=== PATIENT | male | born 1950 | race African-American/Black ===

== ENCOUNTER 2016-04-26 12:59 | Emergency (ER) ==
[2016-04-26 13:14] VITALS: BP 158/92
--- NOTE | 2016-04-26 13:27 | PROVIDER DOCUMENTATION ---
HPI-General Adult - General Source: patient - History of Present Illness -Gen Adult Nature of Presenting Problems: PT IS A 66 YOM WITH A CC OF TOOTHACHE X 2 WEEKS REPORTS FEELS LIKE HAVING PALPITATIONS TODAY. PT HAS HX OF AFIB. DENIES SOB,CP,N,V,FEVER. PT REPORTS HIS PARTIAL ON LEFT UPPER IS STUCK IN LEFT GUM CAUSING TOOTHACHE. Location of Pain/Injury: reports: mouth Quality of Pain: reports: aching Severity: reports: moderate Onset/Duration: reports: other (2WEEKS) Timing: reports: still present Similar Symptoms Previously?: No Recently seen or treated by another doctor?: No <Abhijit Yu - Last Filed: 04/26/16 13:27> <Salo Johnson - Last Filed: 04/26/16 13:30> - General Chief Complaint: Toothache Stated Complaint: TOOTHACHE/PALPITATIONS Time Seen by Provider: 04/26/16 13:19 Allergies/Adverse Reactions: Patient Allergies Allergy/AdvReac Type Severity Reaction Status Date / Time lisinopril AdvReac Unknown Verified 04/03/15 23:15 Home Medications: Home Medication List Medication Instructions Recorded Confirmed Last Taken Type Atenolol/Chlorthalidone 1 tab PO DAILY 04/03/15 04/30/15 04/30/15 History [Atenolol-Chlorthal 50-25 Tb] Review of Systems - Adult - REVIEW OF SYSTEMS - ADULT Constitutional: denies: chills, fever, fatique Eyes: reports: no symptoms reported Ears, Nose, Mouth & Throat: reports: mouth/dental pain. denies: ear pain, sinus problem, throat pain Cardiovascular: reports: palpitations. denies: chest pain, irregular heart rate , orthopnea Respiratory: reports: no symptoms reported Gastrointestinal: reports: no symptoms reported Genitourinary: reports: no symptoms reported Musculoskeletal: reports: no symptoms reported Integumentary: reports: no symptoms reported Neurological: reports: no symptoms reported Psychiatric: reports: no symptoms reported Endocrine: reports: no symptoms reported Hematologic/Lymphatic: reports: no symptoms reported Allergic/Immunologic: reports: no symptoms reported All Other Systems: Reviewed and Negative <Abhijit Yu - Last Filed: 04/26/16 13:27> Past History - Adult - PAST MEDICAL HISTORY-ADULT Review of Records: reports: Nursing Assessment Review Major Childhood Illnesses: reports: denies history Cardiovascular: reports: A-Fib, HTN, hyperlipidemia Other Conditions: reports: denies history - PRIOR SURGERIES/PROCEDURES Surgical/Procedure History: reports: reviewed, not pertinent - PRIOR HOSPITALIZATIONS Prior Hospitalizations: reports: none - IMMUNIZATION STATUS Childhood Immunizations: See Nurse Assessment Flu Vaccine: See Nurse Assessment - FAMILY HISTORY Family History: reviewed, not pertinent - SOCIAL HISTORY Smoking: denies Substance Use: none/never <Abhijit Yu - Last Filed: 04/26/16 13:27> Physical Exam-General - PHYSICAL EXAM-ADULT Initial Vital Signs Reviewed: Yes - CONSTITUTIONAL General Appearance: appears well, alert, no apparent distress - EYES Eyes: PERRL/EOMI - HEAD, EARS, NOSE, MOUTH & THROAT HENMT: moist mucous membranes, TMs normal, pharynx normal, other (TTP LEFT UPPER TOOTH 1ST MOLAR NO DECAY NOTED PARTIAL IS PRESENT BUT NOT STUCK IN GUM.) - NECK Neck: non-tender, full range of motion, supple, normal inspection - RESPIRATORY Respiratory: chest non-tender, lungs clear, normal breath sounds, no pleuratic chest pain, no respiratory distress, no accessory muscle use - CARDIOVASCULAR Cardiovascular: regular rate, rhythm - GASTROINTESTINAL (ABDOMEN) Abdominal Exam: non tender, soft, no organomegaly, no pulsatile mass - MUSCULOSKELETAL Extremity: normal range of motion, non-tender, normal gait - SKIN Integumentary: normal color, normal turgor, warm/dry - PSYCHIATRIC Psych/Mental Status: normal mood/affect, normal thought content, normal thought process, oriented x 3 <Abhijit Yu - Last Filed: 04/26/16 13:27> Progress - PLAN OF CARE/RESULTS Progress/Plan/Lab Results: Orders Category Date Time Status EKG [EKG] Stat Ther 04/26/16 13:15 Ordered Vital Signs - 24 hr 04/26/16 13:11 Temperature 98 F Pulse Rate 62 Respiratory 18 Rate Blood Pressure 158/92 O2 Sat by Pulse 100 Oximetry - EKG 1 Time of EKG reading by physician:: 13:14 EKG Read and Signed by:: Salo Johnson EKG Interpretation (*Must complete 3 of following elements*): Abnormal Rate: 65 Rhythm: SINUS WITH PAC [place]: normal QRS: LVH (MINIMAL VOLTAGE FOR CRITERIA FOR LVH MAY BE NORMAL VARIANT) MA Interval: normal ST Wave: normal <Abhijit Yu - Last Filed: 04/26/16 13:27> Departure - Departure Time of Disposition Order: 13:28 Certified Medical Emergency: Emergent <Abhijit Yu - Last Filed: 04/26/16 13:27> - Departure Time of Disposition Order: 13:29 Certified Medical Emergency: Emergent <Salo Johnson - Last Filed: 04/26/16 13:30> - Departure DIAGNOSIS: Pain, dental Disposition: HOME 01 Condition: Stable Additional Instructions: FOLLOW UP WITH THE DENTAL CLINIC IN [facility] Follow Up Instructions: You have been treated by a care provider in the Emergency Department. These instructions are being provided to you so you can have an understanding of how to care for yourself upon discharge. Upon discharge from the Emergency Department, you are responsible for making arrangements for follow-up care by a physician of your choice. Take all prescribed medications as directed. Return to the Emergency Department immediately for any new or worsening symptoms. You may call the Physician Referral phone number at [phone] to obtain a list of Physicians who are taking new patients. Referrals: None,PCP [Primary Care Provider] - Attestation - Scribe Verification/Attestation Scribe:: Abhijit Yu Acting as Scribe for:: Salo Johnson Scribe documention review:: This chart was documented by a scribe and accurately reflects the service the provider performed and the decisions made by the provider. <Abhijit Yu - Last Filed: 04/26/16 13:27> Physician Attestation - Physician Attestation I, the provider, attest to the following statement:: Salo Johnson Physician documentation Attestation:: This documentation recorded by the scribe accurately reflects the service I personally performed and the decisions made by me. <Abhijit Yu - Last Filed: 04/26/16 13:27>
--- NOTE | 2016-04-26 16:14 | EKG Report ---
Test Performed on : 04/26/2016 1:14:30 PM Test Reason : palpitations hx a fib Blood Pressure : / mmHG Vent. Rate : 065 BPM Atrial Rate : 066 BPM P-R Int : 152 ms QRS Dur : 084 ms QT Int : 438 ms P-R-T Axes : -03 048 036 degrees QTc Int : 455 ms Sinus rhythm. with premature atrial complexes. Minimal voltage criteria for LVH, may be normal variant Borderline ECG When compared with ECG of 30-APR-2015 22:48, No significant change was found Unconfirmed Result
== END 2016-04-26 13:41 | disposition home or self-care (01) ==
LOC: P.ED 12:59
DX: K08.89 Other specified disorders of teeth and supporting structures (principal); R00.2 Palpitations; R94.31 Abnormal electrocardiogram [ECG] [EKG]; I48.91 Unspecified atrial fibrillation; I10 Essential (primary) hypertension; E78.5 Hyperlipidemia, unspecified; Z79.899 Other long term (current) drug therapy
CPT/HCPCS: 93005; 99282

== ENCOUNTER 2016-10-29 21:37 | Inpatient (IN) ==
[2016-10-29] MEDS ORDERED: CARDIZEM 100 MG/NS 100 MG/100 ML IVPB ONE (22:34)
[2016-10-29] MEDS ORDERED: CARDIZEM ONE (22:34)
[2016-10-29] MEDS ORDERED: NS 1,000 ML IV ONE (22:39)
[2016-10-29] MEDS ORDERED: NS 1,000 ML ONE (22:39)
[2016-10-29] MEDS ORDERED: CARDIZEM IV ONE (22:39)
[2016-10-29] MEDS ORDERED: ASPIRIN PO STA (22:40)
[2016-10-29] MEDS ORDERED: ADENOCARD ONE (22:43)
[2016-10-29] MEDS: CARDIZEM 100 MG/NS 100 MG/100 ML IVPB IV SCH ×3 (22:45→23:52)
[2016-10-29 22:48] LABS: MANUAL DIFF NEEDED? NO
[2016-10-29 22:51] LABS: BASO% 0.1 % (0.0-0.8); EOS# 0.06 X1000 (0.0-0.7); EOS% 0.5 % (0.0-10.0); HEMATOCRIT 43.2 % (42.0-52.0); HEMOGLOBIN 14.9 g/dL (14.0-18.0); IMM GRAN# 0.02 X1000 (0.0-0.04); IMM GRAN% 0.2 % (0.0-0.5); LYMPH# 3.21 X1000 (1.2-3.4); LYMPH% 27.2 % (20.5-51.1); MCH 30.3 PG (27-31); MCHC 34.5 g/dL (33-37); MCV 87.8 FL (81-99); MONO# 1.15 X1000 (0.11-0.59); MONO% 9.7 % (1.7-9.3); MPV 10.7 FL (7.4-10.4); NEUT% 62.3 % (42.2-75.2); PLT 205 X1000 (130-400); RBC 4.92 XMIL (4.7-6.1)
[2016-10-29 23:00] LABS: INR 1.02; PROTIME 10.7 Seconds (9.2-11.7); PTT 26.7 Seconds (22.0-36.0)
[2016-10-29] MEDS ORDERED: ADENOCARD IV ONE ×2 (23:06)
[2016-10-29 23:13] LABS: AGAP 17; ALBUMIN 4.6 g/dL (3.5-5.0); ALKALINE PHOSPHATASE 86 U/L (32-122); BUN 14 mg/dL (8-22); CALCIUM 9.2 mg/dL (8.8-10.2); CHLORIDE 95 mmol/L (98-107); CK PROFILE 103 U/L (24-204); COSMO 278; GOT 18 U/L (10-34); GPT 15 U/L (10-44); MAGNESIUM 1.6 mg/dL (1.5-2.7); POTASSIUM 3.1 mmol/L (3.5-5.1); SODIUM 138 mmol/L (136-145); TCO2 26 mmol/L (25-35); TOTAL BILIRUBIN 0.39 mg/dL (0.20-1.00); TOTAL PROTEIN 8.3 g/dL (6.3-8.3)
[2016-10-29] MEDS ORDERED: KLOR-CON PO ONE (23:17)
[2016-10-29] MEDS ORDERED: ZOFRAN IV ONE (23:19)
[2016-10-29] MEDS ORDERED: VERSED IV ONE ×4 (23:28→23:45)
[2016-10-29] MEDS ORDERED: MORPHINE IV ONE (23:29)
[2016-10-29] MEDS ORDERED: LANOXIN ONE (23:54)
[2016-10-30] MEDS ORDERED: NS 1,000 ML IV ONE (00:01)
[2016-10-30] MEDS ORDERED: LANOXIN IV ONE (00:01)
[2016-10-30] MEDS ORDERED: CORDARONE 150 MG/D5W 150 MG/100 ML IV.SOLN IV ONE ×2 (00:07→00:28)
[2016-10-30] MEDS ORDERED: CORDARONE 540 MG in D5W 289.2 ML IV ONE ×2 (00:07→06:30)
[2016-10-30] MEDS: POTASSIUM CHLORIDE 10 MEQ/SWI 10 MEQ/100 ML IVPB IV ONE ×2 (00:15→01:00)
[2016-10-30] MEDS ORDERED: CORDARONE 360 MG/D5W 360 MG/200 ML IV.SOLN IV ONE (00:28)
[2016-10-30] MEDS ORDERED: KLOR-CON PO ONE (01:02)
[2016-10-30] MEDS ORDERED: NS 1,000 ML IV SCH (04:04)
[2016-10-30] MEDS ORDERED: MAGNESIUM SULFATE 2 GM/S.W.I. 2 GM/50 ML IVPB IV ONE (04:04)
[2016-10-30] MEDS ORDERED: ZOFRAN IV PRN (04:04)
[2016-10-30] MEDS: CARDIZEM 100 MG/NS 100 MG/100 ML IVPB IV SCH (04:36)
[2016-10-30] MEDS ORDERED: LOVENOX SUBQ SCH (06:00)
--- NOTE | 2016-10-30 06:36 | HISTORY AND PHYSICAL ---
PRIMARY CARE PROVIDER: JACKI Posey. CHIEF COMPLAINT: Dizziness, palpitations, and nausea. HISTORY OF PRESENT ILLNESS: Briefly, this is a 66-year-old male with a history of atrial fibrillation, hypertension, hyperlipidemia, and anxiety. He stated that sometime in the last week, he hurt his back unloading some heavy equipment. He went to a physician in [place] for treatment for his back pain. During that visit, she stopped his atenolol, which he took for a combination of atrial fibrillation and hypertension. She placed him on a thiazide diuretic and Norvasc 5 mg. Since that time, he stated that he had felt palpitations, culminating in tonight he felt as if his heart was racing. He was dizzy. He denied overt chest pain, shortness of breath. He did have nausea, no vomiting. No additional bowel or bladder complaint. The patient decided to come in to the emergency room. On arrival, laboratory data and an EKG was obtained, that showed him to be in atrial fibrillation, with a rapid ventricular rate. He at some point, converted into SVT while in the emergency room. He was given adenosine, which did slow the rate enough to show underlying atrial fibrillation, but the patient would return back into SVT in the 160s and 170s. He received 2 doses of adenosine, and remained in SVT. He was then given a Cardizem bolus and started on a Cardizem drip, again staying in SVT. The ER provider at that point attempted cardioversion after giving him Versed, and the patient stayed in SVT in the 170s, 180s. I arrived at that point during the patient's care treatment. The patient was very groggy from having received Versed. We gave digoxin 0.25 mg, maxed out the Cardizem drip at 20 mg/hour. The patient would have times where he would attempt to convert. His heart rate would slow to around 100, and he would have reentry SVT. We ultimately ended up loading the patient with amiodarone 150 mg. As that was infusing, he returned to sinus rhythm, rate in the 90s. We will continue the Cardizem, place him in ICU inpatient for further evaluation and treatment. PAST MEDICAL HISTORY: 1. Atrial fibrillation. 2. Hypertension. 3. Hyperlipidemia. 4. Anxiety. PAST SURGICAL HISTORY: Aspiration of knee joint. ALLERGIES: Benadryl, causing palpitations. Lisinopril, causing an unknown reaction. SOCIAL HISTORY: He lives with a friend. Denies alcohol, tobacco, or illicit drug use or abuse. FAMILY HISTORY: Mother had hypertension. Denied any other chronic health issues in first-degree relatives. HOME MEDICATIONS: Chlorthalidone 50 mg p.o. daily, amlodipine 5 mg p.o. daily. REVIEW OF SYSTEMS: Fourteen-point review of systems conducted with the patient. Pertinent positives listed above in the HPI. All other systems were reviewed and found to be negative. PHYSICAL EXAMINATION: VITAL SIGNS: Temperature 98.7 degrees, pulse between 150 and 170. SVT on monitor. Respirations 18. Blood pressure 97/87 to 125/85. Oxygen saturation 98% on 2 L nasal cannula. GENERAL: Well-developed, well-nourished 66-year-old male, lying in the ER stretcher, mildly groggy from receiving Versed. Does answer all questions appropriately. Alert and oriented x3. HEENT: Head is atraumatic, normocephalic. Pupils equal, round, reactive to light. Extraocular eye movement intact. Sclerae is anicteric. Conjunctivae is pink. Oral mucosa was moist. NECK: Supple. No JVD. No thyromegaly. Trachea is midline. No cervical lymphadenopathy. CARDIAC: S1-S2 appreciated. Very rapid rate. SVT on monitor. No murmurs, gallops, or rubs could be appreciated. LUNGS: Clear to auscultation bilaterally. No rhonchi, wheezes, or rales. Symmetrical rise and fall with respirations. ABDOMEN: Protuberant, soft, nondistended, nontender. Bowel sounds present in all 4 quadrants. Normoactive. No pulsatile mass. No organomegaly. EXTREMITIES: No clubbing, cyanosis, or edema. 1+ pedal pulses bilaterally. GENITOURINARY: The patient voids. No bladder distention. Otherwise, deferred. SKIN: Appropriate for race. Warm, dry, and intact. No acute lesions or rash. NEUROLOGICAL: Somewhat lethargic, having received Versed. Alert and oriented x3. Cranial nerves 2-12 appear to be grossly intact. DIAGNOSTIC DATA: Chest x-ray: NAD. LABORATORY DATA: WBC 11.82, hemoglobin 14.9, hematocrit 43.2, platelet count 205,000. Sodium 138, potassium 3.1, chloride 95, carbon dioxide 26, BUN 14, creatinine 1.3. GFR greater than 60. Glucose 124. CK 103. Troponin less than 0.010. ASSESSMENT AND PLAN: 1. Paroxysmal atrial fibrillation, with a rapid ventricular rate, that then converted to supraventricular tachycardia after receiving multiple medications in the emergency room, and a failed attempt at chemical and electrical cardioversion. The patient finally converted to sinus rhythm. He will remain on Cardizem, to be titrated. We will consult Dr. Jose Robles for evaluation in a.m. Echocardiogram has been ordered. It is possible that the patient will need chronic anticoagulation secondary to his atrial fibrillation. At this time, we will just give 40 mg of Lovenox for ventricular tachycardia prophylaxis. 2. Hypertension. Patient has remained normotensive or hypotensive. Cardizem will be continued. Will re-evaluate and restart medications when appropriate. 3. Hypokalemia. Patient was treated with a total of 50 mEq of potassium chloride in the emergency room. 4. Hyperlipidemia. We will order a lipid profile. The patient does not take a statin. 5. Anxiety. The patient was unable to tell us which antianxiety medication he takes. He has received several doses of Versed tonight. While it does have a relatively short half-life, the patient states that he feels fine. Will hold off on anxiety medication at this time and address at a later date if necessary. Further recommendations per patient's clinical course. I personally evaluated and did physicial exam on the patient. I agree with above assessment and plan Dr. Monroe Dictated by JACKI Leigh for Dimitry Monroe MD cc: JACKI Leigh MD Johnna Langford, CRNP MTDD
--- NOTE | 2016-10-30 07:35 | Diag Imaging Result Doc PS360 ---
EXAM: CHEST-PORTABLE HISTORY: CP TECHNIQUE: AP portable upright at 2312 COMMENT: The lungs are clear and the heart and primary vascularity are within normal limits. Compared to 04/30/2015 there has been no significant change. IMPRESSION: No acute disease. Electronically signed by Tyler Diaz 10/30/2016 7:33 AM
[2016-10-30 08:07] VITALS: BP 134/77
[2016-10-30 08:58] LABS: MANUAL DIFF NEEDED? NO
[2016-10-30] MEDS ORDERED: LANOXIN IV SCH (09:00)
[2016-10-30 09:01] LABS: BASO% 0.1 % (0.0-0.8); EOS# 0.03 X1000 (0.0-0.7); EOS% 0.4 % (0.0-10.0); HEMATOCRIT 42.9 % (42.0-52.0); HEMOGLOBIN 14.9 g/dL (14.0-18.0); LYMPH# 1.74 X1000 (1.2-3.4); LYMPH% 24.4 % (20.5-51.1); MCH 30.7 PG (27-31); MCHC 34.7 g/dL (33-37); MCV 88.5 FL (81-99); MONO% 9.8 % (1.7-9.3); MPV 10.1 FL (7.4-10.4); NEUT% 65.3 % (42.2-75.2); PLT 178 X1000 (130-400); RBC 4.85 XMIL (4.7-6.1)
[2016-10-30 09:12] LABS: HEMOGLOBIN A1C 5.6 % (4.8-6.0)
[2016-10-30 09:38] LABS: AGAP 14; BUN 9 mg/dL (8-22); CHLORIDE 98 mmol/L (98-107); COSMO 269; MAGNESIUM 2.3 mg/dL (1.5-2.7); POTASSIUM 3.6 mmol/L (3.5-5.1); SODIUM 135 mmol/L (136-145); TCO2 23 mmol/L (25-35)
[2016-10-30 09:54] LABS: HDL 38 mg/dL (35-55); LDL 195 mg/dL; TRIGLYCERIDES 123 mg/dL (39-160); VLDL 25 mg/dL
--- NOTE | 2016-10-30 18:23 | DISCHARGE SUMMARY ---
ADMISSION DATE: 10/30/2016 DISCHARGE DATE: 10/30/2016 DISCHARGE DIAGNOSES: 1. Paroxysmal atrial fibrillation now in sinus rhythm. 2. Hypertension, under control. 3. Hypokalemia. 4. Hyperlipidemia. 5. Anxiety. PROCEDURE: Chest x-ray done in the ER showed no acute disease. HOSPITAL COURSE: This is a 66-year-old male with past medical history of atrial fibrillation, hypertension, hyperlipidemia, anxiety that presented to the emergency department because he was feeling dizzy and he was having palpitations and finally because he felt that his heart was racing, he came to the ER. He was on found initially in atrial fibrillation with rapid ventricular response. Then after some minutes, that converted to supraventricular tachycardia. He was given adenosine apparently 16 g IV and that has lowered heart rate. He received actually 2 doses of adenosine and remained in SVT. He was started on Cardizem drip and again in SVT, so ER attempted to do cardioversion and after the patient was given Versed and they did that procedure, the heart rate was still in 170s. He was also given digoxin 0.25 mg IV and Cardizem was being given 20 mg/hour and also received 1 dose of amiodarone 150 mg. The patient has converted to sinus rhythm and actually the heart rate is 60. Patient is not complaining of any chest pain or palpitations. I want to see this patient in the morning. The nurse also at bedside. I explained in depth to him that considering that he had atrial fibrillation and then he developed an SVT that was extremely difficult to treat because he received adenosine, digoxin, amiodarone and then Cardizem, he needs to be seen by Cardiology to see if he may need to have more cardiac workup. The patient reports that he is feeling completely fine. He reports that if something wrong happened to him, he is going to feel it. The patient was explained again that the patient cannot feel the heart rhythm and that can have just an episode of syncope from a normal heart rhythm, but he insists to leave. I informed him that my recommendation is to stay in the hospital and have a Cardiology evaluation, but he insists to leave and he is going to sign forms for leaving the hospital AMA. Patient recommended to come to the hospital in case he notices any chest pain, shortness of breath or sensation of palpitations. The patient refused to be examined by me this morning. As we mentioned before, patient is leaving the hospital against medical advice. The patient was explained that if some of thing happens to him , it will be his responsibility. He acknowledged understanding. cc: Mookie Mcpherson MD MTDD
--- NOTE | 2016-10-31 05:50 | EKG Report ---
Test Performed on : 10/30/2016 05:45:15 AM Test Reason : ROUTINE Blood Pressure : / mmHG Vent. Rate : 069 BPM Atrial Rate : 069 BPM P-R Int : 152 ms QRS Dur : 082 ms QT Int : 438 ms P-R-T Axes : 038 020 050 degrees QTc Int : 469 ms Sinus rhythm. with premature atrial complexes. Nonspecific T wave abnormality Prolonged QT Abnormal ECG When compared with ECG of 30-OCT-2016 00:26, (Unconfirmed) premature atrial complexes. are now present Confirmed by Lul Vasquez MD ([id number]) on 11/02/2016 6:00:16 PM
--- NOTE | 2016-10-31 06:05 | EKG Report ---
Test Performed on : 10/29/2016 9:42:32 PM Test Reason : SOB Blood Pressure : / mmHG Vent. Rate : 128 BPM Atrial Rate : 174 BPM P-R Int : 000 ms QRS Dur : 092 ms QT Int : 332 ms P-R-T Axes : 000 030 221 degrees QTc Int : 484 ms Atrial fibrillation. with rapid ventricular response. with premature ventricular or aberrantly condu cted complexes. Nonspecific ST and T wave abnormality Abnormal ECG When compared with ECG of 26-APR-2016 13:14, Atrial fibrillation. has replaced Sinus rhythm. Vent. rate has increased BY [address] now depressed in Lateral leads Nonspecific T wave abnormality, worse in Inferior leads Unconfirmed Result
--- NOTE | 2016-10-31 06:10 | EKG Report ---
Test Performed on : 10/29/2016 10:39:33 PM Test Reason : No Order in [employer] Blood Pressure : / mmHG Vent. Rate : 181 BPM Atrial Rate : 220 BPM P-R Int : 000 ms QRS Dur : 086 ms QT Int : 270 ms P-R-T Axes : 000 031 -76 degrees QTc Int : [address] \T\ T wave abnormality, consider inferior ischemia Abnormal ECG When compared with ECG of 29-OCT-2016 22:38, (Unconfirmed) Sinus rhythm. has replaced Atrial fibrillation. Unconfirmed Result
--- NOTE | 2016-10-31 06:10 | EKG Report ---
Test Performed on : 10/30/2016 00:26:57 AM Test Reason : No Order in [employer] Blood Pressure : / mmHG Vent. Rate : 087 BPM Atrial Rate : 087 BPM P-R Int : 148 ms QRS Dur : 078 ms QT Int : 386 ms P-R-T Axes : 042 026 055 degrees QTc Int : 464 ms Normal sinus rhythm. Normal ECG When compared with ECG of 29-OCT-2016 22:39, (Unconfirmed) Vent. rate has decreased BY 94 BPM Non-specific change in ST segment in Inferior leads ST no longer depressed in Anterolateral leads T wave inversion no longer evident in Inferior leads T wave amplitude has decreased in Anterior leads Unconfirmed Result
--- NOTE | 2016-11-15 02:45 | PROVIDER DOCUMENTATION ---
This chart was entered by Mary Cobian Scribe, acting as scribe for George Knott MD. HPI-Cardiac General - General Chief Complaint: Palpitations Stated Complaint: SOB, DIZZYNESS Time Seen by Provider: 10/29/16 22:50 Source: patient Allergies/Adverse Reactions: Patient Allergies Allergy/AdvReac Type Severity Reaction Status Date / Time lisinopril AdvReac Unknown Verified 10/29/16 23:13 Home Medications: Home Medication List Medication Instructions Recorded Confirmed Last Taken Type Amlodipine Besylate 5 mg PO DAILY 10/29/16 10/29/16 10/29/16 History Chlorthalidone 50 mg PO DAILY 10/29/16 10/29/16 10/29/16 History - History of Present Illness-Cardiac Nature of Presenting Problem: Patient is a 66 year old male who presents in the ED with complaints of palpitations/arrhythmia. Patient states he began feeling his heart race, chest pain/pressure, and short of breath last night, and states he has had symptoms intermittent since onset. He also states he has a history of afib, hypertension , and hyperlipidemia, and states he takes Chlorthalidone and Amlodipine but was taken off of Atenolol a few days ago after going to the ER for groin pain. He denies any other symptoms. Location: reports: substernal Quality of Pain: reports: pressure Severity in ED: mild, moderate Onset/Duration: abrupt, 24 hours ago, last night Timing: still present Context/Activities at Onset: reports: none Modifying Factors: improves with: nothing Palpitation Quality: irregular History of arrythmia: reports: A-Fib Recent use of:: reports: no stimulants Aspirin Treatment Today: reports: no aspirin today Prior Chest Pain/Cardiac Workup: reports: other (hx afib) Associated Symptoms: reports: shortness of breath Similar Symptoms Previously?: Yes Recently Seen Here or By Another Healthcare Provider: No Review of Systems - Adult - REVIEW OF SYSTEMS - ADULT Constitutional: reports: no symptoms reported Eyes: reports: no symptoms reported Ears, Nose, Mouth & Throat: reports: no symptoms reported Cardiovascular: reports: see HPI, chest pain, irregular heart rate, palpitations Respiratory: reports: see HPI, shortness of breath Gastrointestinal: reports: no symptoms reported Genitourinary: reports: no symptoms reported Musculoskeletal: reports: no symptoms reported Integumentary: reports: no symptoms reported Neurological: reports: no symptoms reported Psychiatric: reports: no symptoms reported Endocrine: reports: no symptoms reported Hematologic/Lymphatic: reports: no symptoms reported Allergic/Immunologic: reports: no symptoms reported All Other Systems: Reviewed and Negative Past History - Adult - PAST MEDICAL HISTORY-ADULT Review of Records: reports: Nursing Assessment Review, Medications Reviewed Major Childhood Illnesses: reports: denies history Cardiovascular: reports: A-Fib, HTN, hyperlipidemia Respiratory: reports: denies history Gastrointestinal: reports: denies history Obstetrical/Gynecological: reports: denies history Genitourinary: reports: denies history Musculoskeletal: reports: denies history Neurological: reports: denies history Psychiatric: reports: denies history Endocrine/Immune: reports: denies history Other Conditions: reports: denies history - PRIOR SURGERIES/PROCEDURES Surgical/Procedure History: reports: reviewed, not pertinent - PRIOR HOSPITALIZATIONS Prior Hospitalizations: reports: none - IMMUNIZATION STATUS Childhood Immunizations: See Nurse Assessment Flu Vaccine: See Nurse Assessment - FAMILY HISTORY Family History: reviewed, not pertinent - SOCIAL HISTORY Smoking: denies, non-smoker, quit greater than 1 year Substance Use: none/never Alcohol Use Frequency: never Living Situation: alone Physical Exam-General - PHYSICAL EXAM-ADULT Initial Vital Signs Reviewed: Yes - CONSTITUTIONAL General Appearance: alert, no apparent distress - EYES Eyes: PERRL/EOMI, pink conjunctivae - HEAD, EARS, NOSE, MOUTH & THROAT HENMT: normocephalic/atraumatic, moist mucous membranes - NECK Neck: non-tender, full range of motion, supple, normal inspection - RESPIRATORY Respiratory: chest non-tender, lungs clear, normal breath sounds, no pleuratic chest pain, no respiratory distress, no accessory muscle use - CARDIOVASCULAR Cardiovascular: no edema, no gallop, no JVD, no murmur, tachycardia, irregularly irregular - GASTROINTESTINAL (ABDOMEN) Abdominal Exam: normal bowel sounds, non tender, soft, no organomegaly, no pulsatile mass - LYMPHATIC Lymphatic: no adenopathy - MUSCULOSKELETAL Back Exam: normal inspection, no CVA tenderness, no vertebral tenderness Extremity: normal range of motion, non-tender, normal gait, normal inspection, no pedal edema, no calf tenderness, normal capillary refill, pelvis stable - SKIN Integumentary: normal color, normal turgor, warm/dry - NEUROLOGIC Neurologic: grossly normal, no motor/sensory deficits - PSYCHIATRIC Psych/Mental Status: normal mood/affect, oriented x 3 Progress - PLAN OF CARE/RESULTS Progress/Plan/Lab Results: Orders Category Date Time Status Admit - [facility] - [facility] Routine AdmDCTranf 10/30/16 04:04 Ordered Activity - Strict Bedrest ORDERED Care 10/30/16 04:04 Active Cardiac Monitoring DIRECTED Care 10/29/16 22:40 Completed Intake and Output-Strict ORDERED Care 10/30/16 04:04 Active Nursing- MD Consult Request ROUTINE Care 10/30/16 04:04 Completed Oxygen Therapy- ED Nursing DIRECTED Care 10/29/16 22:40 Completed Saline Loc NOW Care 10/29/16 22:40 Active Vital Signs Order Q1H Care 10/30/16 04:04 Completed Z-Document. for Tele Applied ORDERED Care 10/30/16 04:04 Active Physician/Provider Consults Routine Cons 10/30/16 08:00 Ordered NPO Diet 10/30/16 00:51 Completed CHEST-PORTABLE [RAD] Stat Exams 10/29/16 22:40 Completed BASIC METABOLIC PANEL [CHEM] Routine Lab 10/30/16 08:47 Completed CBC WITH DIFF [HEME] Routine Lab 10/30/16 08:47 Completed CBC WITH ELECTRONIC DIFF [HEME] Stat Lab 10/29/16 22:46 Completed CK PROFILE [SP CHEM] Stat Lab 10/29/16 22:46 Completed COMPREHENSIVE METABOLIC PANEL [CHEM] Stat Lab 10/29/16 22:46 Completed MAGNESIUM [CHEM] Routine Lab 10/30/16 08:47 Completed MAGNESIUM [CHEM] Stat Lab 10/29/16 22:46 Completed PRO B-NATRIURETIC PEPTIDE Stat Lab 10/29/16 22:46 Completed PROTIME WITH INR [COAG] Stat Lab 10/29/16 22:46 Completed PTT [COAG] Stat Lab 10/29/16 22:46 Completed TROPONIN T Stat Lab 10/29/16 22:46 Completed TSH Stat Lab 10/30/16 08:47 Completed 0.9% Sodium Chloride Inj [Ns] 1,000 ml Med 10/29/16 22:39 Discontinued .ROUTE As Directed 0.9% Sodium Chloride Inj [Ns] 1,000 ml Med 10/30/16 04:04 Discontinued IV 75 mls/hr 0.9% Sodium Chloride Inj [Ns] 1,000 ml Med 10/29/16 22:39 Discontinued IV 999 mls/hr 0.9% Sodium Chloride Inj [Ns] 1,000 ml Med 10/30/16 00:01 Discontinued IV 999 mls/hr Adenosine [Adenocard] Med 10/29/16 22:43 Discontinued 12 mg .ROUTE .STK-MED ONE Adenosine [Adenocard] Med 10/29/16 23:06 Discontinued 12 mg IV NOW ONE Adenosine [Adenocard] Med 10/29/16 23:06 Discontinued 6 mg IV NOW ONE Amiodarone 150 mg/D5w [Cordarone 150 mg/D5w] Med 10/30/16 00:07 Discontinued 150 mg in 100 ml IV NOW Amiodarone 150 mg/D5w [Cordarone 150 mg/D5w] Med 10/30/16 00:28 Discontinued 150 mg in 100 ml IV NOW Amiodarone 360 mg/D5w [Cordarone 360 mg/D5w] Med 10/30/16 00:28 Discontinued 360 mg in 200 ml IV ONCE Aspirin Med 10/29/16 22:40 Discontinued 325 mg PO STAT STA Dextrose 5%-Water Inj [D5w] 289.2 ml Med 10/30/16 06:30 Discontinued Amiodarone [Cordarone] 540 mg IV 16.667 mls/hr Digoxin [Lanoxin] Med 10/30/16 09:00 Discontinued 125 microgm IV DAILY Digoxin [Lanoxin] Med 10/30/16 00:01 Discontinued 250 microgm IV NOW ONE Digoxin [Lanoxin] Med 10/29/16 23:54 Discontinued 500 microgm .ROUTE .STK-MED ONE Diltiazem 100 mg/Ns [Cardizem 100 mg/Ns] Med 10/29/16 22:34 Discontinued 100 mg in 100 ml .ROUTE As Directed Diltiazem 100 mg/Ns [Cardizem 100 mg/Ns] Med 10/29/16 22:43 Discontinued 100 mg in 100 ml IV 10 mg/hr Diltiazem 100 mg/Ns [Cardizem 100 mg/Ns] Med 10/29/16 23:44 Discontinued 100 mg in 100 ml IV 20 mg/hr Diltiazem [Cardizem] Med 10/29/16 22:39 Discontinued 20 mg IV NOW ONE Diltiazem [Cardizem] Med 10/29/16 22:34 Discontinued 25 mg .ROUTE .STK-MED ONE Enoxaparin [Lovenox] Med 10/30/16 06:00 Discontinued 40 mg SUBQ Q24H Magnesium Sulfate 2 gm/S.w.i. [Magnesium Sulfate 2 gm/S Med 10/30/16 04:04 Discontinued .w.i] 2 gm in 50 ml IV NOW Midazolam [Versed] Med 10/29/16 23:44 Discontinued 2 mg IV NOW ONE Midazolam [Versed] Med 10/29/16 23:45 Discontinued 2 mg IV NOW ONE Midazolam [Versed] Med 10/29/16 23:35 Discontinued 4 mg IV NOW ONE Midazolam [Versed] Med 10/29/16 23:28 Discontinued 5 mg IV NOW ONE Morphine Med 10/29/16 23:29 Discontinued 4 mg IV NOW ONE Ondansetron [Zofran] Med 10/29/16 23:19 Discontinued 4 mg IV NOW ONE Ondansetron [Zofran] Med 10/30/16 04:04 Discontinued 4 mg IV Q4H PRN PRN Potassium Chloride 10 Meq/Swi Med 10/30/16 01:00 Discontinued 10 meq in 100 ml IV NOW Potassium Chloride E.r. [Klor-Con] Med 10/29/16 23:17 Discontinued 40 meq PO NOW ONE Potassium Chloride E.r. [Klor-Con] Med 10/30/16 01:02 Discontinued 40 meq PO NOW ONE Telemetry [OM.EQ] Routine Oth 10/30/16 04:04 Active EKG [EKG] Routine Ther 10/30/16 08:00 Completed EKG [EKG] Stat Ther 10/29/16 21:49 Draft Transfer/Admit Order [TRANSFER] Routine Transfer 10/30/16 00:48 Completed Result Diagrams: 10/30/16 08:47 10/30/16 08:47 Departure - Departure Date of Disposition Decision: 10/29/16 Time of Disposition Decision: 23:19 DIAGNOSIS: Atrial fibrillation with rapid ventricular response Disposition: ADMITTED INPATIENT 09 Certified Medical Emergency: Emergent Condition: Stable - Critical Care Note This patient required my direct & personal management of CC.: No Attestation - Physician/ GILMA Attestation Patient care was provided by Advanced Practice Provider:: No The physician spent face to face time with patient:: Yes Advanced Practice Provider documentation review:: Supervising physician onsite and consulted in the evaluation and care of this patient. The physician did have a face to face encounter with the patient. This chart was documented by the indicated scribe, (Mary Cobian, Krunal) and accurately reflects the services I performed and decisions made by me, George Knott MD, as attested by the provider's signature.
--- NOTE | 2016-11-15 02:49 | ED EKG INTERP ---
This chart was entered by Mary Cobian Scribe, acting as scribe for George Knott MD. EKG Interpretation - EKG Time of EKG reading by physician:: 21:42 EKG Read and Signed by:: George Knott EKG Interpretation (*Must complete 3 of following elements*): Abnormal Rate: 128 Rhythm: atrial fibrillation with rapid ventricular response with PVCs ST Wave: non-specific ST changes - EKG # 2 Time of EKG reading by physician:: 22:39 EKG Read and Signed by:: George Knott EKG Interpretation (*Must complete 3 of following elements*): Abnormal Rate: 181 Rhythm: supraventricular tachycardia Comments: ST & T wave abnormality, consider inferior ischemia Attestation - Physician/ GILMA Attestation Patient care was provided by Advanced Practice Provider:: No The physician spent face to face time with patient:: Yes Advanced Practice Provider documentation review:: Supervising physician onsite and consulted in the evaluation and care of this patient. The physician did have a face to face encounter with the patient. This chart was documented by the indicated scribe, (Mary Cobian Scribe) and accurately reflects the services I performed and decisions made by me, George Knott MD, as attested by the provider's signature.
--- NOTE | 2016-11-15 02:49 | ED EKG INTERP ---
This chart was entered by Mary Cobian Scribe, acting as scribe for Georeg Knott MD. EKG Interpretation - EKG Time of EKG reading by physician:: 00:26 EKG Read and Signed by:: George Knott EKG Interpretation (*Must complete 3 of following elements*): Normal Rate: 87 Rhythm: normal sinus rhythm Leopold: normal QRS: normal CA Interval: normal ST Wave: normal Attestation - Physician/ GILMA Attestation Patient care was provided by Advanced Practice Provider:: No The physician spent face to face time with patient:: Yes Advanced Practice Provider documentation review:: Supervising physician onsite and consulted in the evaluation and care of this patient. The physician did have a face to face encounter with the patient. This chart was documented by the indicated scribe, (Mary Cobian Scribe) and accurately reflects the services I performed and decisions made by Nikos grayson Robert H., MD, as attested by the provider's signature.
== END 2016-10-30 10:22 | disposition left against medical advice (07) ==
LOC: ED 21:37 → SUATTDRO 10-30 01:09 → ICU 10-30 01:09
PROVIDERS: ATTEND Internal Medicine